=== PATIENT | female | born 1950 | race Asian ===

== ENCOUNTER 2017-06-12 15:16 | Emergency (ER) | payer BC, OTHER ==
[~2017-06-12] VITALS: Ht 152.4 cm; Wt 64.4 kg
[2017-06-12 15:49] VITALS: BP_SYST 206
--- NOTE | 2017-06-12 15:50 | NUR ---
Tami ortizmagy in [facility] - 06/12/17 at [address] Freeman at bedside examining patient
--- NOTE | 2017-06-12 15:52 | NUR ---
Patient triaged and placed in waiting room. VSS and patient appears in no acute distress at this time. Accompanied by daughter , awaiting available bed, and MD notified of need for MSE.
--- NOTE | 2017-06-12 16:11 | NUR ---
Note nadiya in EDM - 06/12/17 at 2159 by SDEDAFJ Patient triaged and placed in waiting room . VSS and patient appears in no acute distress at this time. Accompanied by , awaiting available bed, and MD notified of need for MSE.
[2017-06-12 16:22] LABS: BASOPHILS % (AUTO) 0.4 % (0.0-2.0); EOSINOPHILS # (AUTO) 0.1 K/uL (0.0-0.4); EOSINOPHILS % (AUTO) 1.8 % (0.0-4.0); HEMATOCRIT 37.9 % (36-48); HEMOGLOBIN 12.5 g/dL (12.0-16.0); LYMPHOCYTES # (AUTO) 1.3 K/uL (1.0-5.5); LYMPHOCYTES % (AUTO) 25.1 % (20.5-51.5); MEAN CORPUSCULAR HEMOGLOBIN 29 pg (27-31); MEAN CORPUSCULAR HGB CONC 33 % (32-36); MEAN CORPUSCULAR VOLUME 88 fL (79.0-98.0); MONOCYTES # (AUTO) 0.2 K/uL (0.0-1.0); MONOCYTES % (AUTO) 4.6 % (1.7-9.3); NEUTROPHILS # (AUTO) 3.6 K/uL (1.8-7.7); NEUTROPHILS % (AUTO) 68.1 % (40.0-70.0); PLATELET COUNT (AUTO) 330 K/uL (130-430); RED BLOOD CELL COUNT(AUTO) 4.33 MIL/uL (4.2-6.2); RED CELL DISTRIBUTION WIDTH 12.8 % (9.0-15.0); WHITE BLOOD COUNT (AUTO) 5.2 K/uL (4.8-10.8)
[2017-06-12 16:47] LABS: ANION GAP 7 (5-15); CALCIUM 8.3 mg/dL (8.4-11.0); CHLORIDE 97 mmol/L (98-107); CREATININE 0.86 mg/dL (0.55-1.30); GLUCOSE 258 mg/dL (70-99); POTASSIUM 5.1 mmol/L (3.5-5.1); SODIUM SERUM 129 mmol/L (136-145); UREA NITROGEN, BLOOD 8 mg/dL (8-21)
[2017-06-12 16:50] LABS: PROTHROMBIN TIME 10.7 SECS (9.5-12.5)
[2017-06-12 16:52] LABS: ALANINE AMINOTRANSFERASE 23 U/L (12-78); ALBUMIN 3.6 g/dL (3.4-4.8); ASPARTATE AMINOTRANSFERASE 16 U/L (10-37); TOTAL BILIRUBIN 0.2 mg/dL (0.0-1.0)
[2017-06-12 16:53] LABS: ALCOHOL, BLOOD < 3 mg/dL (<10); GFR AFRICAN AMERICAN 84 mL/min (>90)
[2017-06-12 16:57] LABS: ACETAMINOPHEN < 1 ug/mL (1-30)
--- NOTE | 2017-06-12 17:04 | NUR ---
Note dianamagy in EDM - 06/12/17 at 1917 by CRISTINA Patient given written and verbal discharge instructions and verbalizes understanding. ER discussed with patient the results and treatment provided. Patient in stable condition. ID arm band removed. Rx of antivert given. Patient educated on pain management and to follow up with PMD. Pain Scale 0. Opportunity for questions provided and answered.
--- NOTE | 2017-06-12 17:12 | NUR ---
Placed in room 02. Placed on cardiac care nurse, blood pressure machine and pulse oximeter. To gown for exam. Side rails up. Report given to Hemant.
--- NOTE | 2017-06-12 17:15 | NUR ---
Pt complains of dizziness since this morning, states the pt "felt like she was going to pass out 3 times", states pt's bs was 53 this morning and right before coming to the ER it was 253. Pt states she has left ear problems for the past week and saw an ENT, they stated there was nothing worng with the ear. Pt ambulated into ER with no noted difficulty. No other injuries/complaints per pt or noted.
--- NOTE | 2017-06-12 17:30 | NUR ---
Dr Freeman at bedside examining patient
--- NOTE | 2017-06-12 18:30 | NUR ---
Pt is resting comfortably in bed with no noted distress or discomfort.
[2017-06-12 19:04] VITALS: BP_SYST 151
--- NOTE | 2017-06-12 19:04 | NUR ---
Patient given written and verbal discharge instructions and verbalizes understanding. ER MD discussed with patient the results and treatment provided. Patient in stable condition. ID arm band removed. Rx of antivert given. Patient educated on pain management and to follow up with PMD. Pain Scale 0. Opportunity for questions provided and answered.
== END 2017-06-12 19:04 | disposition home or self-care (01) ==
LOC: SED 15:16
DX: R42 Dizziness and giddiness (principal); E11.9 Type 2 diabetes mellitus without complications; R03.0 Elevated blood-pressure reading, without diagnosis of hypertension; Z88.1 Allergy status to other antibiotic agents
CPT/HCPCS: 36415; 70450; 71010; 80053; 82962; 84484; 85025; 85610; 85730; 93005; 99285; G0480; G0481; G0482

== ENCOUNTER 2021-12-24 23:32 | Inpatient (IN) | payer OTHER, MEDICAID ==
[~2021-12-24] VITALS: Ht 147.3 cm; Wt 61.2 kg
[2021-12-25] VITALS (19 sets, daily range): BP systolic 107–160
[2021-12-25] MEDS ORDERED: NACL 0.9% 1,000 ML IV ONE ×3 (00:15→02:15)
[2021-12-25] MEDS ORDERED: LORazepam 2 MG/ML VIAL ONE (00:37)
[2021-12-25] MEDS ORDERED: LORazepam 2 MG/ML VIAL IVP ONE (00:45)
[2021-12-25] MEDS ORDERED: levETIRAcetam 1,000 MG in NS 90 ML IV ONE (00:45)
[2021-12-25] MEDS ORDERED: ONDANSETRON HCL 4 MG/2 ML VIAL ONE ×2 (01:29→02:38)
[2021-12-25 01:30] LABS: ANION GAP 23 (5-15); CHLORIDE 87 mmol/L (98-107); CREATININE 1.45 mg/dL (0.55-1.30); GLUCOSE 368 mg/dL (70-99); POTASSIUM 3.9 mmol/L (3.5-5.1); SODIUM SERUM 125 mmol/L (136-145); UREA NITROGEN, BLOOD 14 mg/dL (8-21)
[2021-12-25 01:41] LABS: INR 0.9 (0.8-1.2); PROTHROMBIN TIME 9.6 SECS (9.5-12.5)
[2021-12-25 01:44] LABS: ALANINE AMINOTRANSFERASE 27 U/L (12-78); ALBUMIN 3.8 g/dL (3.4-4.8); ASPARTATE AMINOTRANSFERASE 23 U/L (10-37); TOTAL BILIRUBIN < 0.1 mg/dL (0.0-1.0)
[2021-12-25 01:45] LABS: ALCOHOL, BLOOD < 3 mg/dL (<10)
[2021-12-25] MEDS ORDERED: INSULIN REGULAR, HUMAN 10 UNITS/0.1 ML INJ IVP ONE (02:15)
[2021-12-25 02:25] LABS: BASOPHILS % (AUTO) 0.2 % (0.0-2.0); EOSINOPHILS % (AUTO) 0.1 % (0.0-4.0); HEMATOCRIT 35.8 % (36-48); HEMOGLOBIN 11.6 g/dL (12.0-16.0); LYMPHOCYTES % (AUTO) 15.8 % (20.5-51.5); MEAN CORPUSCULAR HEMOGLOBIN 28 pg (27-31); MEAN CORPUSCULAR HGB CONC 32 % (32-36); MEAN CORPUSCULAR VOLUME 87 fL (79.0-98.0); MONOCYTES # (AUTO) 0.4 K/uL (0.0-1.0); MONOCYTES % (AUTO) 3.2 % (1.7-9.3); NEUTROPHILS # (AUTO) 10.1 K/uL (1.8-7.7); NEUTROPHILS % (AUTO) 80.7 % (40.0-70.0); PLATELET COUNT (AUTO) 500 K/uL (130-430); RED BLOOD CELL COUNT(AUTO) 4.14 MIL/uL (4.2-6.2); RED CELL DISTRIBUTION WIDTH 14.6 % (9.0-15.0); WHITE BLOOD COUNT (AUTO) 12.5 K/uL (4.8-10.8)
[2021-12-25] MEDS ORDERED: PROCHLORPERAZINE EDISYLATE 10 MG/2 ML VIAL IVP ONE (02:45)
[2021-12-25] MEDS ORDERED: ONDANSETRON HCL 4 MG/2 ML VIAL IVP ONE (02:45)
[2021-12-25 03:02] LABS: ACETAMINOPHEN < 1 ug/mL (1-30)
[2021-12-25] MEDS ORDERED: cefTRIAXone 1 GM in D5W 50 ML IV ONE (03:15)
[2021-12-25] MEDS ORDERED: HYDROcodone/ACETAMIN 7.5-325 MG TAB PO ONE (03:30)
[2021-12-25] MEDS ORDERED: AMOXICILLIN/CLAVULANATE POTASSIUM 875 MG TABLET PO ONE (03:30)
[2021-12-25] MEDS ORDERED: cefTRIAXone 1 GM VIAL ONE (03:56)
[2021-12-25] MEDS ORDERED: cefTRIAXone 1 GM IVPB PREMIX 50 ML IV ONE (03:58)
[2021-12-25] MEDS: cefTRIAXone 1 GM IVPB PREMIX 50 ML IV SCH (05:00)
[2021-12-25 05:50] LABS: COLOR,URINE YELLOW (YELLOW)
[2021-12-25 05:52] LABS: BILIRUBIN,URINE NEGATIVE (NEGATIVE); BLOOD, URINE NEGATIVE (NEGATIVE); CLARITY/URINE CLEAR (CLEAR); GLUCOSE,URINE 3+ (NEGATIVE); KETONES,URINE NEGATIVE (NEGATIVE); LEUKOCYTE ESTERASE ,URINE NEGATIVE (NEGATIVE); NITRITE, URINE NEGATIVE (NEGATIVE); PROTEIN URINE NEGATIVE (NEGATIVE); UROBILINOGEN,URINE 0.2 (0.2-1.0)
[2021-12-25 05:55] LABS: BARBITURATE, URINE NEGATIVE (NEG <=200); BENZODIAZEPINE, URINE NEGATIVE (NEG <=150); CANNABINOID, URINE NEGATIVE (NEG <=50); COCAINE, URINE NEGATIVE (NEG <=150); METHAMPHETAMINES SCREEN,URINE NEGATIVE (NEG <=500); OPIATE, URINE NEGATIVE (NEG <=100); PHENCYCLIDINE SCREEN,URINE NEGATIVE (NEG <=25); UR TRICYCLIC ANTIDEPRESSANTS NEGATIVE (NEG <=300); URINE AMPHETAMINE NEGATIVE (NEG <=500); URINE METHADONE NEGATIVE (NEG <=200); URINE OXYCODONE SCREEN NEGATIVE (NEG <=100); URINE PROPOXYPHENE SCREEN NEGATIVE (NEG <=300)
[2021-12-25] MEDS ORDERED: DEXTROSE 50% JECT 50 ML DISP.SYRIN ONE (06:29)
[2021-12-25] MEDS ORDERED: D5W 1,000 ML IV PRN (06:30)
[2021-12-25] MEDS ORDERED: GLUCOSE (DEXTROSE) ORAL GEL -Adults PO PRN (06:30)
[2021-12-25] MEDS: DEXTROSE 50% JECT 50 ML DISP.SYRIN IVP PRN ×2 (06:38→11:54)
[2021-12-25 07:00] LABS: BASOPHILS % (AUTO) 0.3 % (0.0-2.0); HEMATOCRIT 31.8 % (36-48); HEMOGLOBIN 10.5 g/dL (12.0-16.0); LYMPHOCYTES # (AUTO) 1.3 K/uL (1.0-5.5); LYMPHOCYTES % (AUTO) 14.3 % (20.5-51.5); MEAN CORPUSCULAR HEMOGLOBIN 28 pg (27-31); MEAN CORPUSCULAR HGB CONC 33 % (32-36); MEAN CORPUSCULAR VOLUME 85 fL (79.0-98.0); MONOCYTES # (AUTO) 0.5 K/uL (0.0-1.0); MONOCYTES % (AUTO) 5.5 % (1.7-9.3); NEUTROPHILS # (AUTO) 7.2 K/uL (1.8-7.7); NEUTROPHILS % (AUTO) 79.9 % (40.0-70.0); RED BLOOD CELL COUNT(AUTO) 3.74 MIL/uL (4.2-6.2); RED CELL DISTRIBUTION WIDTH 14.2 % (9.0-15.0)
[2021-12-25 07:23] LABS: ANION GAP 11 (5-15); CALCIUM 8.4 mg/dL (8.4-11.0); CHLORIDE 97 mmol/L (98-107); CREATININE 0.99 mg/dL (0.55-1.30); GLUCOSE 65 mg/dL (70-99); POTASSIUM 4.4 mmol/L (3.5-5.1); SODIUM SERUM 132 mmol/L (136-145); UREA NITROGEN, BLOOD 12 mg/dL (8-21)
[2021-12-25 07:35] LABS: ALANINE AMINOTRANSFERASE 22 U/L (12-78); ALBUMIN 3.2 g/dL (3.4-4.8); ASPARTATE AMINOTRANSFERASE 24 U/L (10-37); TOTAL BILIRUBIN 0.1 mg/dL (0.0-1.0)
[2021-12-25 08:47] LABS: PLATELET COUNT (AUTO) 405 K/uL (130-430)
[2021-12-25] MEDS ORDERED: METF-518 PO (10:50)
[2021-12-25] MEDS ORDERED: GLIP10TA11 PO (10:50)
[2021-12-25] MEDS ORDERED: ASCO500T20 PO (10:50)
[2021-12-25] MEDS ORDERED: ASA81 PO (10:50)
[2021-12-25] MEDS ORDERED: HYDR-4038 PO (10:50)
[2021-12-25] MEDS ORDERED: VALS320T2 PO (12:21)
[2021-12-25] MEDS ORDERED: LIP10 PO (19:29)
[2021-12-26] VITALS (19 sets, daily range): BP systolic 116–174
[2021-12-26] MEDS ORDERED: cefTRIAXone 1 GM IVPB PREMIX 50 ML IV ONE (05:22)
[2021-12-26] MEDS: cefTRIAXone 1 GM IVPB PREMIX 50 ML IV SCH (05:24)
[2021-12-26 06:34] LABS: ALANINE AMINOTRANSFERASE 28 U/L (12-78); ANION GAP 6 (5-15); ASPARTATE AMINOTRANSFERASE 29 U/L (10-37); CALCIUM 8.4 mg/dL (8.4-11.0); CHLORIDE 101 mmol/L (98-107); CREATININE 1.13 mg/dL (0.55-1.30); GLUCOSE 118 mg/dL (70-99); PHOSPHORUS 3.8 mg/dL (2.7-4.5); POTASSIUM 4.4 mmol/L (3.5-5.1); SODIUM SERUM 136 mmol/L (136-145); TOTAL BILIRUBIN 0.1 mg/dL (0.0-1.0); UREA NITROGEN, BLOOD 11 mg/dL (8-21)
[2021-12-26 07:17] LABS: BASOPHILS % (AUTO) 0.3 % (0.0-2.0); EOSINOPHILS # (AUTO) 0.1 K/uL (0.0-0.4); EOSINOPHILS % (AUTO) 1.7 % (0.0-4.0); HEMATOCRIT 32.2 % (36-48); HEMOGLOBIN 10.8 g/dL (12.0-16.0); LYMPHOCYTES # (AUTO) 1.1 K/uL (1.0-5.5); MEAN CORPUSCULAR HEMOGLOBIN 29 pg (27-31); MEAN CORPUSCULAR HGB CONC 34 % (32-36); MEAN CORPUSCULAR VOLUME 85 fL (79.0-98.0); MONOCYTES # (AUTO) 0.3 K/uL (0.0-1.0); MONOCYTES % (AUTO) 7.2 % (1.7-9.3); NEUTROPHILS # (AUTO) 3.2 K/uL (1.8-7.7); NEUTROPHILS % (AUTO) 67.8 % (40.0-70.0); PLATELET COUNT (AUTO) 368 K/uL (130-430); RED BLOOD CELL COUNT(AUTO) 3.79 MIL/uL (4.2-6.2); RED CELL DISTRIBUTION WIDTH 14.5 % (9.0-15.0); WHITE BLOOD COUNT (AUTO) 4.8 K/uL (4.8-10.8)
[2021-12-26] MEDS ORDERED: hydrALAZINE HCL 25 MG TABLET PO ONE (12:30)
[2021-12-26 12:51] LABS: ERYTHROCYTE SEDIMENTATION RATE 26 MM/HR (0-20)
[2021-12-26] MEDS: INSULIN REGULAR, HUMAN 100 UNITS/ML, 10 ML VIAL (humuLIN R) SUBCUT PRN ×2 (12:51→21:19)
[2021-12-26 15:03] LABS: C-REACTIVE PROTEIN QUANT < 0.2 mg/dL (0-0.5)
[2021-12-26] MEDS: hydrALAZINE HCL 25 MG TABLET PO SCH (21:07)
[2021-12-27] VITALS: BP_SYST 151; BP_SYST 153
[2021-12-27 04:00] VITALS: BP_SYST 119
[2021-12-27] MEDS ORDERED: cefTRIAXone 1 GM IVPB PREMIX 50 ML IV ONE (05:35)
[2021-12-27] MEDS: cefTRIAXone 1 GM IVPB PREMIX 50 ML IV SCH (05:52)
[2021-12-27 06:06] LABS: HEMOGLOBIN 11.5 g/dL (12.0-16.0); RED BLOOD CELL COUNT(AUTO) 4.06 MIL/uL (4.2-6.2)
[2021-12-27 06:14] LABS: BASOPHILS % (AUTO) 0.4 % (0.0-2.0); EOSINOPHILS # (AUTO) 0.1 K/uL (0.0-0.4); HEMATOCRIT 34.5 % (36-48); LYMPHOCYTES # (AUTO) 1.5 K/uL (1.0-5.5); LYMPHOCYTES % (AUTO) 24.5 % (20.5-51.5); MEAN CORPUSCULAR HEMOGLOBIN 28 pg (27-31); MEAN CORPUSCULAR HGB CONC 33 % (32-36); MEAN CORPUSCULAR VOLUME 85 fL (79.0-98.0); MONOCYTES # (AUTO) 0.4 K/uL (0.0-1.0); MONOCYTES % (AUTO) 7.3 % (1.7-9.3); NEUTROPHILS # (AUTO) 3.9 K/uL (1.8-7.7); NEUTROPHILS % (AUTO) 65.8 % (40.0-70.0); PLATELET COUNT (AUTO) 405 K/uL (130-430); RED CELL DISTRIBUTION WIDTH 14.5 % (9.0-15.0)
[2021-12-27 06:37] LABS: ANION GAP 7 (5-15); CALCIUM 8.9 mg/dL (8.4-11.0); CHLORIDE 100 mmol/L (98-107); GLUCOSE 129 mg/dL (70-99); PHOSPHORUS 4.8 mg/dL (2.7-4.5); POTASSIUM 4.2 mmol/L (3.5-5.1); SODIUM SERUM 137 mmol/L (136-145); UREA NITROGEN, BLOOD 13 mg/dL (8-21)
[2021-12-27 08:00] VITALS: BP_SYST 159
[2021-12-27] MEDS: hydrALAZINE HCL 25 MG TABLET PO SCH ×2 (08:15→21:21)
[2021-12-27 12:00] VITALS: BP_SYST 132
[2021-12-27] MEDS: INSULIN LISPRO SLIDING SCALE 100 UNITS/ML VIAL (humaLOG) SUBCUT PRN ×2 (12:25→18:10)
[2021-12-27] MEDS: cloNIDine HCL 0.1 MG TABLET PO PRN (13:14)
[2021-12-27 16:53] VITALS: BP_SYST 139
[2021-12-27] MEDS ORDERED: METOPROLOL TARTRATE 25 MG TABLET PO ONE (18:00)
[2021-12-27] MEDS ORDERED: lisinopriL 20 MG TABLET PO ONE (18:00)
[2021-12-27] MEDS ORDERED: amLODIPine BESYLATE 5 MG TABLET PO ONE (18:00)
[2021-12-27 20:05] VITALS: BP_SYST 155
[2021-12-27] MEDS: DOCUSATE SODIUM 100 MG CAPSULE PO SCH (21:20)
[2021-12-27] MEDS: ATORVASTATIN 20 MG TABLET PO SCH (21:22)
[2021-12-27] MEDS: PSYLLIUM HUSK 1 PKT PACKET PO SCH (21:26)
[2021-12-28 06:31] LABS: ANION GAP 9 (5-15); CALCIUM 8.8 mg/dL (8.4-11.0); CHLORIDE 100 mmol/L (98-107); CREATININE 0.98 mg/dL (0.55-1.30); GLUCOSE 181 mg/dL (70-99); POTASSIUM 4.3 mmol/L (3.5-5.1); SODIUM SERUM 135 mmol/L (136-145); UREA NITROGEN, BLOOD 17 mg/dL (8-21)
[2021-12-28] MEDS ORDERED: cefTRIAXone 1 GM IVPB PREMIX 50 ML IV ONE (06:33)
[2021-12-28] MEDS: cefTRIAXone 1 GM IVPB PREMIX 50 ML IV SCH (06:46)
[2021-12-28] MEDS: INSULIN LISPRO SLIDING SCALE 100 UNITS/ML VIAL (humaLOG) SUBCUT PRN ×4 (06:58→21:12)
[2021-12-28 07:13] LABS: C-REACTIVE PROTEIN QUANT < 0.2 mg/dL (0-0.5)
[2021-12-28 07:55] LABS: BASOPHILS % (AUTO) 0.5 % (0.0-2.0); EOSINOPHILS # (AUTO) 0.2 K/uL (0.0-0.4); EOSINOPHILS % (AUTO) 2.9 % (0.0-4.0); HEMATOCRIT 34.4 % (36-48); HEMOGLOBIN 11.5 g/dL (12.0-16.0); LYMPHOCYTES # (AUTO) 1.5 K/uL (1.0-5.5); LYMPHOCYTES % (AUTO) 24.8 % (20.5-51.5); MEAN CORPUSCULAR HEMOGLOBIN 28 pg (27-31); MEAN CORPUSCULAR HGB CONC 33 % (32-36); MEAN CORPUSCULAR VOLUME 85 fL (79.0-98.0); MONOCYTES # (AUTO) 0.4 K/uL (0.0-1.0); MONOCYTES % (AUTO) 6.5 % (1.7-9.3); NEUTROPHILS % (AUTO) 65.3 % (40.0-70.0); PLATELET COUNT (AUTO) 423 K/uL (130-430); RED BLOOD CELL COUNT(AUTO) 4.06 MIL/uL (4.2-6.2); RED CELL DISTRIBUTION WIDTH 14.4 % (9.0-15.0); WHITE BLOOD COUNT (AUTO) 6.2 K/uL (4.8-10.8)
[2021-12-28 08:00] VITALS: BP_SYST 125
[2021-12-28] MEDS: DOCUSATE SODIUM 100 MG CAPSULE PO SCH ×2 (09:29→21:00)
[2021-12-28] MEDS: hydrALAZINE HCL 25 MG TABLET PO SCH ×2 (09:29→20:59)
[2021-12-28] MEDS: PSYLLIUM HUSK 1 PKT PACKET PO SCH ×3 (09:30→21:00)
[2021-12-28] MEDS: METOPROLOL TARTRATE 25 MG TABLET PO SCH ×2 (09:30→20:59)
[2021-12-28] MEDS: amLODIPine BESYLATE 5 MG TABLET PO SCH (09:30)
[2021-12-28] MEDS: lisinopriL 20 MG TABLET PO SCH (09:31)
[2021-12-28 10:13] LABS: ERYTHROCYTE SEDIMENTATION RATE 34 MM/HR (0-20)
[2021-12-28 12:22] VITALS: BP_SYST 152
[2021-12-28 16:42] VITALS: BP_SYST 149
[2021-12-28 20:00] VITALS: BP_SYST 134
[2021-12-28] MEDS: ATORVASTATIN 20 MG TABLET PO SCH (20:58)
[2021-12-28 23:30] VITALS: BP_SYST 121
[2021-12-29] MEDS ORDERED: cefTRIAXone 1 GM IVPB PREMIX 50 ML IV ONE (03:08)
[2021-12-29] MEDS: cefTRIAXone 1 GM IVPB PREMIX 50 ML IV SCH (05:55)
[2021-12-29] MEDS: INSULIN LISPRO SLIDING SCALE 100 UNITS/ML VIAL (humaLOG) SUBCUT PRN ×3 (07:36→23:13)
[2021-12-29 08:00] VITALS: BP_SYST 124
[2021-12-29 08:09] LABS: BASOPHILS % (AUTO) 0.3 % (0.0-2.0); EOSINOPHILS # (AUTO) 0.2 K/uL (0.0-0.4); EOSINOPHILS % (AUTO) 3.6 % (0.0-4.0); HEMATOCRIT 33.6 % (36-48); HEMOGLOBIN 11.2 g/dL (12.0-16.0); LYMPHOCYTES # (AUTO) 1.6 K/uL (1.0-5.5); LYMPHOCYTES % (AUTO) 25.8 % (20.5-51.5); MEAN CORPUSCULAR HEMOGLOBIN 28 pg (27-31); MEAN CORPUSCULAR HGB CONC 33 % (32-36); MEAN CORPUSCULAR VOLUME 85 fL (79.0-98.0); MONOCYTES # (AUTO) 0.4 K/uL (0.0-1.0); MONOCYTES % (AUTO) 5.9 % (1.7-9.3); NEUTROPHILS # (AUTO) 3.9 K/uL (1.8-7.7); NEUTROPHILS % (AUTO) 64.4 % (40.0-70.0); PLATELET COUNT (AUTO) 447 K/uL (130-430); RED BLOOD CELL COUNT(AUTO) 3.98 MIL/uL (4.2-6.2); RED CELL DISTRIBUTION WIDTH 14.5 % (9.0-15.0); WHITE BLOOD COUNT (AUTO) 6.1 K/uL (4.8-10.8)
[2021-12-29 08:45] LABS: ALANINE AMINOTRANSFERASE 25 U/L (12-78); ANION GAP 9 (5-15); ASPARTATE AMINOTRANSFERASE 24 U/L (10-37); CHLORIDE 99 mmol/L (98-107); CREATININE 1.03 mg/dL (0.55-1.30); GLUCOSE 186 mg/dL (70-99); POTASSIUM 4.2 mmol/L (3.5-5.1); SODIUM SERUM 134 mmol/L (136-145); TOTAL BILIRUBIN 0.2 mg/dL (0.0-1.0); UREA NITROGEN, BLOOD 21 mg/dL (8-21)
[2021-12-29] MEDS: hydrALAZINE HCL 25 MG TABLET PO SCH ×2 (08:50→22:09)
[2021-12-29] MEDS: METOPROLOL TARTRATE 25 MG TABLET PO SCH ×2 (08:50→22:13)
[2021-12-29] MEDS: lisinopriL 20 MG TABLET PO SCH (08:51)
[2021-12-29] MEDS: DOCUSATE SODIUM 100 MG CAPSULE PO SCH ×2 (08:53→22:10)
[2021-12-29] MEDS: amLODIPine BESYLATE 5 MG TABLET PO SCH (08:53)
[2021-12-29] MEDS: PSYLLIUM HUSK 1 PKT PACKET PO SCH ×3 (08:54→23:01)
[2021-12-29 09:32] LABS: C-REACTIVE PROTEIN QUANT < 0.2 mg/dL (0-0.5)
[2021-12-29 09:40] LABS: ERYTHROCYTE SEDIMENTATION RATE 22 MM/HR (0-20)
[2021-12-29 12:06] VITALS: BP_SYST 132
[2021-12-29 16:22] LABS: THYROID STIMULATING HORMONE 2.01 uIu/mL (0.36-3.74)
[2021-12-29 16:42] VITALS: BP_SYST 128
[2021-12-29] MEDS: ATORVASTATIN 20 MG TABLET PO SCH (22:11)
[2021-12-30 05:44] VITALS: BP_SYST 142
[2021-12-30 05:49] VITALS: BP_SYST 142
[2021-12-30 08:25] VITALS: BP_SYST 139
[2021-12-30] MEDS: hydrALAZINE HCL 25 MG TABLET PO SCH ×2 (09:00→20:49)
[2021-12-30] MEDS: cefTRIAXone 1 GM IVPB PREMIX 50 ML IV SCH (09:23)
[2021-12-30] MEDS: DOCUSATE SODIUM 100 MG CAPSULE PO SCH ×2 (09:24→20:48)
[2021-12-30] MEDS: amLODIPine BESYLATE 5 MG TABLET PO SCH (09:26)
[2021-12-30] MEDS: METOPROLOL TARTRATE 25 MG TABLET PO SCH ×2 (09:27→20:48)
[2021-12-30] MEDS: lisinopriL 20 MG TABLET PO SCH (09:27)
[2021-12-30] MEDS: PSYLLIUM HUSK 1 PKT PACKET PO SCH ×3 (09:28→21:00)
[2021-12-30] MEDS ORDERED: ACETAMINOPHEN 325 MG TABLET PO PRN (12:00)
[2021-12-30] MEDS ORDERED: ACETAMINOPHEN 325 MG TABLET ONE (12:03)
[2021-12-30] MEDS: INSULIN LISPRO SLIDING SCALE 100 UNITS/ML VIAL (humaLOG) SUBCUT PRN ×2 (12:17→20:57)
[2021-12-30 15:52] VITALS: BP_SYST 139; BP_SYST 176
[2021-12-30] MEDS: cloNIDine HCL 0.1 MG TABLET PO PRN (16:05)
[2021-12-30 20:01] VITALS: BP_SYST 110
[2021-12-30] MEDS: ATORVASTATIN 20 MG TABLET PO SCH (20:48)
[2021-12-30] MEDS: NEOMY SULF/BACITRAC ZN/POLY 28 GM OINT..GM. TP SCH (20:51)
[2021-12-31] VITALS (8 sets, daily range): BP systolic 106–142
[2021-12-31] MEDS ORDERED: BENZOCAINE/MENTHOL 1 EACH LOZENGE MM PRN (07:45)
[2021-12-31] MEDS: PSYLLIUM HUSK 1 PKT PACKET PO SCH ×3 (09:00→21:06)
[2021-12-31] MEDS: cefTRIAXone 1 GM IVPB PREMIX 50 ML IV SCH (09:12)
[2021-12-31] MEDS: METOPROLOL TARTRATE 25 MG TABLET PO SCH ×2 (09:14→21:12)
[2021-12-31] MEDS: lisinopriL 20 MG TABLET PO SCH (09:14)
[2021-12-31] MEDS: hydrALAZINE HCL 25 MG TABLET PO SCH ×2 (09:15→21:04)
[2021-12-31] MEDS: amLODIPine BESYLATE 5 MG TABLET PO SCH (09:16)
[2021-12-31] MEDS: DOCUSATE SODIUM 100 MG CAPSULE PO SCH ×2 (12:19→21:03)
[2021-12-31] MEDS: ATORVASTATIN 20 MG TABLET PO SCH (21:04)
[2021-12-31] MEDS: INSULIN LISPRO SLIDING SCALE 100 UNITS/ML VIAL (humaLOG) SUBCUT PRN (21:21)
[2022-01-01 01:15] VITALS: BP_SYST 121
[2022-01-01] MEDS: INSULIN LISPRO SLIDING SCALE 100 UNITS/ML VIAL (humaLOG) SUBCUT PRN ×2 (06:51→11:09)
[2022-01-01 08:00] VITALS: BP_SYST 153
[2022-01-01] MEDS: hydrALAZINE HCL 25 MG TABLET PO SCH (09:02)
[2022-01-01] MEDS: DOCUSATE SODIUM 100 MG CAPSULE PO SCH (09:02)
[2022-01-01] MEDS: METOPROLOL TARTRATE 25 MG TABLET PO SCH (09:02)
[2022-01-01] MEDS: amLODIPine BESYLATE 5 MG TABLET PO SCH (09:03)
[2022-01-01] MEDS: lisinopriL 20 MG TABLET PO SCH (09:03)
[2022-01-01] MEDS: NEOMY SULF/BACITRAC ZN/POLY 28 GM OINT..GM. TP SCH (09:04)
[2022-01-01] MEDS: PSYLLIUM HUSK 1 PKT PACKET PO SCH ×2 (09:04→14:49)
[2022-01-01 12:00] VITALS: BP_SYST 135
[2022-01-01 15:19] VITALS: BP_SYST 135
[2022-01-01 15:55] VITALS: BP_SYST 143
== END 2022-01-01 17:00 | DRG 637 ==
LOC: SED 23:32 → SIC 12-25 04:00 → STU 12-27 15:40 → SMU 12-30 16:59
PROVIDERS: ADMIT Preventive Medicine Preventive Medicine/Occupational Environmental Medicine; ATTEND Preventive Medicine Preventive Medicine/Occupational Environmental Medicine
DX: E11.10 Type 2 diabetes mellitus with ketoacidosis without coma (principal); G93.41 Metabolic encephalopathy; J69.0 Pneumonitis due to inhalation of food and vomit; N17.0 Acute kidney failure with tubular necrosis; E87.1 Hypo-osmolality and hyponatremia; D64.9 Anemia, unspecified; D75.839 Thrombocytosis, unspecified; E83.39 Other disorders of phosphorus metabolism; I11.9 Hypertensive heart disease without heart failure; G40.909 Epilepsy, unspecified, not intractable, without status epilepticus; K59.00 Constipation, unspecified; Z79.84 Long term (current) use of oral hypoglycemic drugs; Z79.899 Other long term (current) drug therapy; Z88.1 Allergy status to other antibiotic agents; Z79.82 Long term (current) use of aspirin
CPT/HCPCS: 36415; 70450-TC; 70551; 71045; 76376; 80048; 80053; 80061; 80307; 81003; 82306; 82803-TC; 82962; 83036; 83735; 84100; 84443; 84484; 85025; 85610-TC; 85651-TC; 85730-TC; 86140; 87040; 87081; 87086; 92610-GN; 93971; 95816; 96374; 96375; 97110-GP; 97116-GP; 97530-GP; 99285; G0378; G0480; G0481; G0482; J0696; J0780; J1815; J1953; J2060; J2405

== ENCOUNTER 2022-05-05 11:10 | Emergency (ER) | payer OTHER, MEDICAID ==
[~2022-05-05] VITALS: Ht 152.4 cm; Wt 63.0 kg
[~2022-05-05 11:10] MED LIST: ASA81 PO; ASCO500T20 PO; HYDR-4038 PO; LIP10 PO; VALS320T2 PO
[2022-05-05 11:25] VITALS: BP_SYST 165
[2022-05-05] MEDS ORDERED: GLIP10TA21 PO (11:37)
[2022-05-05] MEDS ORDERED: DILT240C91 PO (11:37)
[2022-05-05] MEDS ORDERED: METF-518 PO (11:37)
[2022-05-05 11:56] LABS: BASOPHILS % (AUTO) 0.4 % (0.0-2.0); EOSINOPHILS # (AUTO) 0.1 K/uL (0.0-0.4); EOSINOPHILS % (AUTO) 1.1 % (0.0-4.0); LYMPHOCYTES # (AUTO) 1.4 K/uL (1.0-5.5); LYMPHOCYTES % (AUTO) 24.4 % (20.5-51.5); MEAN CORPUSCULAR HEMOGLOBIN 28 pg (27-31); MEAN CORPUSCULAR HGB CONC 33 % (32-36); MEAN CORPUSCULAR VOLUME 85 fL (79.0-98.0); MONOCYTES # (AUTO) 0.3 K/uL (0.0-1.0); NEUTROPHILS # (AUTO) 3.9 K/uL (1.8-7.7); NEUTROPHILS % (AUTO) 69.1 % (40.0-70.0); PLATELET COUNT (AUTO) 395 K/uL (130-430); RED CELL DISTRIBUTION WIDTH 13.9 % (9.0-15.0); WHITE BLOOD COUNT (AUTO) 5.6 K/uL (4.8-10.8)
[2022-05-05 12:01] LABS: ANION GAP 8 (5-15); CALCIUM 8.8 mg/dL (8.4-11.0); CHLORIDE 97 mmol/L (98-107); CREATININE 1.21 mg/dL (0.55-1.30); GLUCOSE 171 mg/dL (70-99); POTASSIUM 4.1 mmol/L (3.5-5.1); SODIUM SERUM 132 mmol/L (136-145); UREA NITROGEN, BLOOD 17 mg/dL (8-21)
[2022-05-05 12:10] LABS: ALANINE AMINOTRANSFERASE 21 U/L (12-78); ALBUMIN 3.4 g/dL (3.4-4.8); ASPARTATE AMINOTRANSFERASE 21 U/L (10-37); TOTAL BILIRUBIN 0.3 mg/dL (0.0-1.0)
[2022-05-05 12:52] VITALS: BP_SYST 155
== END 2022-05-05 12:52 | disposition home or self-care (01) ==
LOC: SED 11:10
DX: Z13.9 Encounter for screening, unspecified (principal); E87.5 Hyperkalemia; E11.9 Type 2 diabetes mellitus without complications; I10 Essential (primary) hypertension; Z88.1 Allergy status to other antibiotic agents; Z79.899 Other long term (current) drug therapy
CPT/HCPCS: 36415; 80053; 83880; 84484; 85025; 93005; 99284

== ENCOUNTER 2022-08-24 10:22 | Emergency (ER) | payer OTHER, MEDICAID ==
[~2022-08-24] VITALS: Ht 149.9 cm; Wt 61.2 kg
[~2022-08-24 10:22] MED LIST changes: +DILT240C91 PO; +GLIP10TA21 PO; +METF-518 PO
--- NOTE | 2022-08-24 10:55 | NUR ---
BIBA WITH C/C OF NOT ABLE TO WAKE UP PT THIS AM. PT WITH HX OF SEIZURES. PT WAS ALTERED THIS AM, ON ARRIVAL OF EMS PT SEEMED MORE POST ICTAL WITH EYES OPEN, NONVERBAL. NOW IN ED WITH AT SIDE OF [facility], PT DOES RESPOND BUT SLOWLY TO QUESTIONS ASKED. PT STILL CONFUSED, BELIEVED IT WAS [address] GARCIA.
--- NOTE | 2022-08-24 10:57 | NUR ---
PT REMAINS IN EMS GURNEY IN [facility] DUE TO NO BED AVAILABLE.
--- NOTE | 2022-08-24 15:51 | NUR ---
PT SON CONTACT INFO [phone]
[2022-08-24 16:22] LABS: BASOPHILS % (AUTO) 0.6 % (0.0-2.0); EOSINOPHILS % (AUTO) 0.3 % (0.0-4.0); HEMATOCRIT 36.8 % (36-48); HEMOGLOBIN 12.5 g/dL (12.0-16.0); LYMPHOCYTES # (AUTO) 1.4 K/uL (1.0-5.5); MEAN CORPUSCULAR HEMOGLOBIN 28 pg (27-31); MEAN CORPUSCULAR HGB CONC 34 % (32-36); MEAN CORPUSCULAR VOLUME 82 fL (79.0-98.0); MONOCYTES # (AUTO) 0.4 K/uL (0.0-1.0); MONOCYTES % (AUTO) 5.6 % (1.7-9.3); NEUTROPHILS % (AUTO) 72.5 % (40.0-70.0); PLATELET COUNT (AUTO) 367 K/uL (130-430); RED CELL DISTRIBUTION WIDTH 15.6 % (9.0-15.0); WHITE BLOOD COUNT (AUTO) 6.8 K/uL (4.8-10.8)
[2022-08-24 17:05] LABS: ANION GAP 6 (5-15); CALCIUM 9.3 mg/dL (8.4-11.0); CHLORIDE 102 mmol/L (98-107); CREATININE 1.24 mg/dL (0.55-1.30); GLUCOSE 131 mg/dL (70-99); UREA NITROGEN, BLOOD 20 mg/dL (8-21)
[2022-08-24 17:27] LABS: ALANINE AMINOTRANSFERASE 25 U/L (12-78); ALBUMIN 3.6 g/dL (3.4-4.8); ASPARTATE AMINOTRANSFERASE 23 U/L (10-37); TOTAL BILIRUBIN 0.3 mg/dL (0.0-1.0)
--- NOTE | 2022-08-24 20:46 | NUR ---
Placed in room 4 . Placed on alarm security or surveillance monitor, blood pressure machine and pulse oximeter. To gown for exam. Side rails up. Report given to HAMMAD DUMONT(TELE).
--- NOTE | 2022-08-24 21:00 | NUR ---
ER at bedside examining patient.
--- NOTE | 2022-08-24 21:00 | NUR ---
PT IS AA&OX4. AFEBRILE. NAD. DENIES PAIN. GCS 15. AMBULATORY W/ STEADY GAIT. SAFE & HAZARD FREE ENVIRONMENT PROVIDED. BEDSIDE ACCUCHECK = 84MG/DL. OJ & FOOD PROVIDED AND ABLE TO TOLETAE. CONNECTED TO [employer] SUPER[employer]OR. VSS
[2022-08-24 22:25] VITALS: BP_SYST 128
--- NOTE | 2022-08-24 22:26 | NUR ---
Patient given written and verbal discharge instructions and verbalizes understanding. ER MD discussed with patient the results and treatment provided. Patient in stable condition. ID arm band removed. IV catheter removed intact and dressing applied, no active bleeding. Patient educated on pain management and to follow up with PMD. Pain Scale 0/10. Opportunity for questions provided and answered. Medication side effect fact sheet provided. ACCOMPANIED BY SPOUSE. WHEELED TO THE [facility] BY EXHIBITOR SALES. PT IS IN STABLE CONDITION.
== END 2022-08-24 22:15 | disposition home or self-care (01) ==
LOC: SED 10:22
DX: R56.9 Unspecified convulsions (principal); R41.82 Altered mental status, unspecified; E11.9 Type 2 diabetes mellitus without complications; Z88.1 Allergy status to other antibiotic agents; Z88.8 Allergy status to other drugs, medicaments and biological substances; Z79.899 Other long term (current) drug therapy
CPT/HCPCS: 36415; 70450-TC; 71045; 76376; 80053; 82962; 84484; 85025; 93005; 99285

== ENCOUNTER 2023-09-17 15:26 | Observation (INO) | payer BC, MEDICAID ==
[~2023-09-17] VITALS: Ht 152.4 cm; Wt 59.9 kg
[2023-09-17 15:30] VITALS: BP_SYST 136; PULSE 42; RESP 19; TEMP 98; O2SAT 98
[2023-09-17 18:35] LABS: BASOPHILS % (AUTO) 0.5 % (0.0-2.0); EOSINOPHILS # (AUTO) 0.2 K/uL (0.0-0.4); EOSINOPHILS % (AUTO) 3.1 % (0.0-4.0); HEMATOCRIT 41.9 % (36-48); LYMPHOCYTES # (AUTO) 1.6 K/uL (1.0-5.5); LYMPHOCYTES % (AUTO) 25.8 % (20.5-51.5); MEAN CORPUSCULAR HEMOGLOBIN 31 pg (27-31); MEAN CORPUSCULAR HGB CONC 33 % (32-36); MEAN CORPUSCULAR VOLUME 91 fL (79.0-98.0); MONOCYTES # (AUTO) 0.3 K/uL (0.0-1.0); MONOCYTES % (AUTO) 5.3 % (1.7-9.3); NEUTROPHILS % (AUTO) 65.3 % (40.0-70.0); PLATELET COUNT (AUTO) 339 K/uL (130-430); RED BLOOD CELL COUNT(AUTO) 4.58 MIL/uL (4.2-6.2); RED CELL DISTRIBUTION WIDTH 14.2 % (9.0-15.0); WHITE BLOOD COUNT (AUTO) 6.1 K/uL (4.8-10.8)
[2023-09-17 18:55] LABS: ANION GAP 9 (5-15); CALCIUM 8.6 mg/dL (8.4-11.0); CARBON DIOXIDE 26 mmol/L (23-29); CHLORIDE 105 mmol/L (98-107); CREATININE 1.49 mg/dL (0.55-1.30); GLUCOSE 150 mg/dL (74-106); HCG,QUANTITATIVE 1 mIU/ML (0-6); POTASSIUM 4.6 mmol/L (3.5-5.1); SODIUM SERUM 140 mmol/L (136-145); THYROID STIMULATING HORMONE 1.79 uIu/mL (0.36-3.74); UREA NITROGEN, BLOOD 28 mg/dL (8-21)
[2023-09-17] MEDS ORDERED: SITA50TA3 PO (22:23)
[2023-09-17] MEDS ORDERED: DILT360C39 PO (22:23)
[2023-09-17] MEDS ORDERED: METO25TA6 PO (22:23)
[2023-09-17] MEDS ORDERED: CLON0.1T PO (22:23)
[2023-09-17] MEDS ORDERED: TERA1CAP4 PO (22:23)
[2023-09-18 01:21] VITALS: BP_SYST 126; PULSE 40; RESP 15; TEMP 98.2
[2023-09-18 08:26] VITALS: BP_SYST 145; PULSE 50; RESP 18; TEMP 97.4
[2023-09-18 09:43] VITALS: O2SAT 98
[2023-09-18] MEDS ORDERED: LOSARTAN POTASSIUM 25 MG TABLET PO ONE (10:15)
[2023-09-18 11:41] VITALS: BP_SYST 133; PULSE 53; RESP 16; TEMP 97; O2SAT 96
[2023-09-18] MEDS ORDERED: ASCORBIC ACID 500 MG TABLET PO ONE (14:15)
[2023-09-18] MEDS ORDERED: ASPIRIN 81 MG TAB.CHEW PO ONE (14:15)
[2023-09-18 15:02] VITALS: BP_SYST 133; PULSE 54; RESP 16; TEMP 96.7; O2SAT 96
[2023-09-18] MEDS: hydrALAZINE HCL 25 MG TABLET PO SCH ×2 (16:47→22:31)
[2023-09-18 20:30] VITALS: O2SAT 97
[2023-09-18] MEDS ORDERED: TERAZOSIN HCL 1 MG CAPSULE (HYTRIN) PO SCH (21:00)
[2023-09-18] MEDS: glipiZIDE XL 5 MG TAB ( GLUCOTROL XL) PO SCH (22:35)
[2023-09-19 00:44] VITALS: BP_SYST 150; PULSE 60; RESP 19; TEMP 98.3; O2SAT 96
[2023-09-19 07:08] LABS: ANION GAP 10 (5-15); CARBON DIOXIDE 23 mmol/L (23-29); CHLORIDE 101 mmol/L (98-107); CREATININE 1.36 mg/dL (0.55-1.30); GLUCOSE 168 mg/dL (74-106); POTASSIUM 4.3 mmol/L (3.5-5.1); SODIUM SERUM 134 mmol/L (136-145); UREA NITROGEN, BLOOD 24 mg/dL (8-21)
[2023-09-19 07:10] LABS: BASOPHILS % (AUTO) 0.4 % (0.0-2.0); EOSINOPHILS # (AUTO) 0.1 K/uL (0.0-0.4); EOSINOPHILS % (AUTO) 2.1 % (0.0-4.0); HEMATOCRIT 42.3 % (36-48); HEMOGLOBIN 14.3 g/dL (12.0-16.0); LYMPHOCYTES # (AUTO) 1.4 K/uL (1.0-5.5); LYMPHOCYTES % (AUTO) 24.1 % (20.5-51.5); MEAN CORPUSCULAR HEMOGLOBIN 31 pg (27-31); MEAN CORPUSCULAR HGB CONC 34 % (32-36); MEAN CORPUSCULAR VOLUME 90 fL (79.0-98.0); MONOCYTES # (AUTO) 0.3 K/uL (0.0-1.0); MONOCYTES % (AUTO) 5.1 % (1.7-9.3); NEUTROPHILS % (AUTO) 68.3 % (40.0-70.0); PLATELET COUNT (AUTO) 321 K/uL (130-430); RED BLOOD CELL COUNT(AUTO) 4.69 MIL/uL (4.2-6.2); RED CELL DISTRIBUTION WIDTH 13.8 % (9.0-15.0); WHITE BLOOD COUNT (AUTO) 5.8 K/uL (4.8-10.8)
[2023-09-19 08:00] VITALS: BP_SYST 161; PULSE 76; RESP 16; TEMP 97.6; O2SAT 98
[2023-09-19] MEDS ORDERED: AMLO5TAB4 PO (08:55)
[2023-09-19] MEDS ORDERED: ASPIRIN 81 MG TAB.CHEW PO SCH (09:00)
[2023-09-19] MEDS ORDERED: VALSARTAN Non-Formulary 160 MG TABLET PO SCH (09:00)
[2023-09-19] MEDS ORDERED: LOSARTAN POTASSIUM 25 MG TABLET PO SCH (09:00)
[2023-09-19] MEDS ORDERED: ASCORBIC ACID 500 MG TABLET PO SCH (09:00)
[2023-09-19] MEDS ORDERED: ATORVASTATIN 10 MG TABLET PO SCH (09:00)
[2023-09-19] MEDS: hydrALAZINE HCL 25 MG TABLET PO SCH (09:25)
[2023-09-19] MEDS: glipiZIDE XL 5 MG TAB ( GLUCOTROL XL) PO SCH (09:28)
[2023-09-19 12:22] VITALS: BP_SYST 142; PULSE 71; RESP 16; TEMP 97.2; O2SAT 99
[2023-09-19 13:23] VITALS: BP_SYST 136; PULSE 70; RESP 16; TEMP 97.5; O2SAT 98
[2023-09-19 14:20] VITALS: BP_SYST 136; PULSE 70; RESP 16; TEMP 97.5; O2SAT 98
== END 2023-09-19 14:22 | disposition home or self-care (01) ==
LOC: SED 15:26 → STU 22:42
PROVIDERS: ADMIT Specialist; ATTEND Specialist
DX: R00.1 Bradycardia, unspecified (principal); R42 Dizziness and giddiness; N17.9 Acute kidney failure, unspecified; E78.5 Hyperlipidemia, unspecified; I10 Essential (primary) hypertension; E11.9 Type 2 diabetes mellitus without complications; E66.9 Obesity, unspecified; Z90.710 Acquired absence of both cervix and uterus; Z79.899 Other long term (current) drug therapy
CPT/HCPCS: 80048 ×2; 84702; 84443 ×2; 85025 ×2; 84484; 36415 ×3; 93005; 99284; 82962; G0378 ×3